=== PATIENT | female | born 1975 | race Asian ===

== ENCOUNTER → 2018-12-14 | Day surgery (SDC) | payer OTHER ==
--- NOTE | 2018-12-15 13:44 | PATH ---
Surgical Pathology Report Patient Name: GUSTAVO RUVALCABA [facility]. Rec. #: [id number] /Age/Gender: 1975 (Age: 43) / F Account: [id number] Location: RADIOLOGY Taken: 12/14/2018 Received: 12/14/2018 Reported: 12/15/2018 Physicians: Ethan Castro M.D. Specimen(s) Received RIGHT BREAST 1:00 Clinical History Breast nodule, 0.7 cm Final Diagnosis BREAST, RIGHT, 1:00, CORE BIOPSY: BENIGN BREAST PARENCHYMA WITH STROMAL FIBROSIS, PREDOMINANTLY CHRONIC AND FOCAL ACUTE INFLAMMATION ASSOCIATED WITH RARE DILATED DUCTS. Comment: Deeper levels have been examined. Suggest clinical and radiologic correlation. Electronically Signed Arabella Daugherty M.D. Gross Description Received in formalin, labeled "right breast 1:00 core biopsy" are 3 cores of shah to yellow soft tissue ranging from 0.5-1 cm in length and up to 0.1 cm diameter. The specimen is submitted in toto in one cassette. Time to formalin fixation: Less than one minute Formalin fixation time: approximately 7 hours KWS/12/14/2018 marshallki/12/14/2018
== END | disposition home or self-care (01) ==
LOC: JMAMMO-SUR 10:59
PROVIDERS: ATTEND Obstetrics & Gynecology
PROC: 0HBT3ZX Excision of Right Breast, Percutaneous Approach, Diagnostic (ICD-10-PCS; principal; 2018-12-14)
DX: N60.31 Fibrosclerosis of right breast (principal)
CPT/HCPCS: 19083; 87899; 88305-TC; A4648

== ENCOUNTER 2020-02-26 12:40 | Inpatient (IN) | payer OTHER ==
--- NOTE | 2020-02-26 13:07 | PDOC ---
History of Present Illness - General Stated Complaint: BLEEDING Time Seen by Provider: 02/26/20 12:50 - History of Present Illness Initial Comments: Dony Naqvi is a 44 y/o female with PMH significant for HTN, presenting today with bloody stool. Reports that the stool started at 10am this morning. She had 5 episodes of bloody stool. No bleeding from rectum at rest. She has never had this before. No hx of diverticulosis or hemorrhoids. Reports mild right mid abdominal pain that started at the same time without any pain radiation. No fever/chills. No back pain. No dysuria. Reports mild diarrhea. No constipation. No nausea/vomiting. No chest pain/shortness of breath. No headache/dizziness. No back pain. PMH: never had colonscopy Meds: bistolic 5 mg QD SurgHx: none. 3 kids from vaginal delivery Past History - Medical History Allergies/Adverse Reactions: Allergies Allergy/AdvReac Type Severity Reaction Status Date / Time No Known Allergies Allergy Verified 12/15/15 17:34 Home Medications: Ambulatory Orders Nebivolol [Bystolic -] 5 mg PO DAILY 02/26/20 COPD: No HTN: Yes - Immunization History Immunization Up to Date: Yes - Psycho-Social/Smoking History Smoking History: Never smoked Have you smoked in the past 12 months: No Information on smoking cessation initiated: No - Substance Abuse Hx (Audit-C & DAST Scrn) How often the patient has a drink containing alcohol: Never Score: In Men: 4 or > Positive; In Women: 3 or > Positive: 0 Screen Result (Pos requires Nsg. Audit-10AR): Negative In the last yr the pt used illegal drug/Rx for NonMed reason: No Score: Yes response is considered Positive: 0 Screen Result (Positive result requires Nsg. DAST-10): Negative Review of Systems - Review of Systems Comments:: GENERAL/CONSTITUTIONAL: No fever or chills. No weakness._ HEAD, EYES, EARS, NOSE AND THROAT: No change in vision. No change in hearing. No sore throat._ CARDIOVASCULAR: No chest pain or shortness of breath_ RESPIRATORY: Denies cough, hemoptysis_ GASTROINTESTINAL: Reports abdominal pain, diarrhea, and bloody stool. No nausea, vomiting, constipation._ GENITOURINARY: No dysuria, frequency, or change in urination._ MUSCULOSKELETAL: No joint or muscle swelling or pain. No neck or back pain._ SKIN: No rash_ NEUROLOGIC: No headache, vertigo, loss of consciousness, or change in strength/sensation._ ENDOCRINE: No increased thirst. No abnormal weight change_ HEMATOLOGIC/LYMPHATIC: No anemia, easy bleeding, or history of blood clots._ ALLERGIC/IMMUNOLOGIC: No hives or skin allergy. *Physical Exam - Vital Signs Last Vital Signs Temp Pulse Resp BP Pulse Ox 83 18 121/82 100 02/26/20 13:00 02/26/20 13:00 02/26/20 13:00 02/26/20 13:00 - Physical Exam GENERAL: Awake, alert, and oriented to person/place/time, in no acute distress_ HEAD: No signs of trauma, normocephalic, atraumatic _ EYES: PERRLA, EOMI, sclera anicteric, conjunctiva clear_ ENT: Hearing grossly normal, nares patent, oropharynx clear without exudates. No uvular deviation. Moist mucosa_ NECK: Normal ROM, supple, no lymphadenopathy, JVD, or masses_ LUNGS: No distress, speaks in full sentences, clear to auscultation bilaterally _ HEART: Regular rate and rhythm, normal S1 and S2, no murmurs appreciated, per ipheral pulses normal and equal bilaterally._ ABDOMEN: Soft, mild TTP right mid abdomen. No guarding, no rebound. No masses_ EXTREMITIES: Normal inspection, Normal range of motion, no edema. No clubbing or cyanosis_ NEUROLOGICAL: Cranial nerves II through XII grossly intact. Normal speech, normal gait, no focal sensorimotor deficits _ SKIN: Warm, Dry, normal turgor, no rashes or lesions noted_ RECTAL: Normal external exam. No active bleeding. No external hemorrhoids visualized. Minimal stool in the rectal vault. No internal hemorrhoids palpated. No masses appreciated. Normal rectal tone. ED Treatment Course - LABORATORY CBC & Chemistry Diagram: 02/26/20 18:19 02/26/20 13:24 - RADIOLOGY Radiology Studies Ordered: Category Date Time Status CHEST X-RAY PORTABLE* [RAD] Stat Radiology 02/26/20 13:04 Ordered Medical Decision Making - Medical Decision Making 44F hx of HTN presenting today with bloody stool x5 starting this morning. DDx includes diverticulosis vs hemorrhoids vs gastric ulcer bleed. -cbc, cmp -ekg, trop, cxr -ua, ucx -serum preg -CT abd pelv with IV contrast -stool occult blood 02/26/20 13:06 EKG shows 79 bpm, NSR, no axis deviation, NC 132, QTc 394, no ST elevation/depression. 02/26/20 14:01 CXR negative for acute intrathoracic pathology. 02/26/20 15:07 Labs reviewed. Laboratory Last Values WBC 10.8 K/mm3 (4.0-10.0) H 02/26/20 13:24 RBC 4.09 M/mm3 (3.60-5.2) 02/26/20 13:24 Hgb 11.6 GM/dL (10.7-15.3) 02/26/20 13:24 Hct 34.8 % (32.4-45.2) 02/26/20 13:24 MCV 85.2 fl (80-96) 02/26/20 13:24 MCH 28.5 pg (25.7-33.7) 02/26/20 13:24 MCHC 33.4 g/dl (32.0-36.0) 02/26/20 13:24 RDW 13.8 % (11.6-15.6) 02/26/20 13:24 Plt Count 302 K/MM3 (134-434) 02/26/20 13:24 MPV 8.2 fl (7.5-11.1) 02/26/20 13:24 Absolute Neuts (auto) 8.7 K/mm3 (1.5-8.0) H 02/26/20 13:24 Neutrophils % 80.3 % (42.8-82.8) 02/26/20 13:24 Lymphocytes % 13.2 % (8-40) 02/26/20 13:24 Monocytes % 5.7 % (3.8-10.2) 02/26/20 13:24 Eosinophils % 0.4 % (0-4.5) 02/26/20 13:24 Basophils % 0.4 % (0-2.0) 02/26/20 13:24 Nucleated RBC % 0 % (0-0) 02/26/20 13:24 PT with INR 12.10 SEC (9.7-13.0) 02/26/20 13:24 INR 1.03 (0.83-1.09) 02/26/20 13:24 PTT (Actin FS) 28.0 SECONDS (25.2-36.5) 02/26/20 13:24 Sodium 138 mmol/L (136-145) 02/26/20 13:24 Potassium 4.2 mmol/L (3.5-5.1) 02/26/20 13:24 Chloride 111 mmol/L (98-107) H 02/26/20 13:24 Carbon Dioxide 22 mmol/L (21-32) 02/26/20 13:24 Anion Gap 6 MMOL/L (8-16) L 02/26/20 13:24 BUN 10.5 mg/dL (7-18) 02/26/20 13:24 Creatinine 0.7 mg/dL (0.55-1.3) 02/26/20 13:24 Est GFR (CKD-EPI)AfAm 123.86 02/26/20 13:24 Est GFR (CKD-EPI)NonAf 106.87 02/26/20 13:24 Random Glucose 113 mg/dL (74-106) H 02/26/20 13:24 Calcium 9.3 mg/dL (8.5-10.1) 02/26/20 13:24 Total Bilirubin 0.6 mg/dL (0.2-1) 02/26/20 13:24 AST 22 U/L (15-37) 02/26/20 13:24 ALT 23 U/L (13-61) 02/26/20 13:24 Alkaline Phosphatase 47 U/L (45-117) 02/26/20 13:24 Creatine Kinase 85 U/L (26-192) 02/26/20 13:24 Troponin I 0.02 ng/ml (0.00-0.05) 02/26/20 13:24 Total Protein 6.3 g/dl (6.4-8.2) L 02/26/20 13:24 Albumin 3.2 g/dl (3.4-5.0) L 02/26/20 13:24 Lipase 119 U/L (73-393) 02/26/20 13:24 Serum , Qual Negative 02/26/20 13:24 Stool Occult Blood Positive (NEGATIVE) 02/26/20 13:[address] abd/pelv with IV contrast. 02/26/20 15:08 CXR negative for acute chest pathology. 02/26/20 17:36 CT abd shows Increased fluid is seen within the colon - ? current diarrheal illness. A retrocecal appendix is noted which demonstrates mild concentric wall thickening and mild periappendiceal soft tissue stranding suggestive of acute appendicitis. Sigmoid diverticulosis is noted without CT evidence of acute diverticulitis. Two contiguous 3 cm left adnexal cysts are seen. Correlation with 6 week follow-up sonography is suggested to document at least partial resolution. 02/26/20 17:46 D/w Dr. Hunter who will evaluate the patient. Admit, NPO, zosyn, fluids. 02/26/20 18:04 Will add on lactic acid to r/o ischemic colitis. 02/26/20 18:08 D/w admitting team who accepts the patient for admission. Discharge - Discharge Information Problems reviewed: Yes Clinical Impression/Diagnosis: Diverticulosis Appendicitis Qualifiers: Appendicitis type: acute appendicitis Acute appendicitis type: unspecified acute appendicitis type Qualified Code(s): K35.80 - Unspecified acute appendicitis Condition: Stable - Admission Yes - Follow up/Referral - Patient Discharge Instructions - Post Discharge Activity
[2020-02-26 14:23] LABS: BASO % 0.4 % (0-2.0); EOS % 0.4 % (0-4.5); HEMATOCRIT 34.8 % (32.4-45.2); HEMOGLOBIN 11.6 GM/dL (10.7-15.3); INR 1.03 (0.83-1.09); LYMPH % 13.2 % (8-40); MCH 28.5 pg (25.7-33.7); MCHC 33.4 g/dl (32.0-36.0); MEAN CELL VOLUME 85.2 fl (80-96); MEAN PLT VOLUME 8.2 fl (7.5-11.1); MONO % 5.7 % (3.8-10.2); NEUT % 80.3 % (42.8-82.8); PLATELET COUNT 302 K/MM3 (134-434); PROTHROMBIN TIME (PATIENT) 12.1 SEC (9.7-13.0); RBC 4.09 M/mm3 (3.60-5.2); RDW 13.8 % (11.6-15.6); WHITE BLOOD COUNT 10.8 K/mm3 (4.0-10.0)
[2020-02-26 14:43] LABS: ALBUMIN 3.2 g/dl (3.4-5.0); BILIRUBIN,TOTAL 0.6 mg/dL (0.2-1); BLOOD UREA NITROGEN 10.5 mg/dL (7-18); CALCIUM 9.3 mg/dL (8.5-10.1); CREATININE 0.7 mg/dL (0.55-1.3); POTASSIUM 4.2 mmol/L (3.5-5.1); TOT PROT 6.3 g/dl (6.4-8.2)
--- NOTE | 2020-02-26 16:25 | PDOC ---
Attending Attestation - Resident Resident Name: Phoenix Langston - ED Attending Attestation I have performed the following: I have examined & evaluated the patient, The case was reviewed & discussed with the resident, I agree w/resident's findings & plan, Exceptions are as noted - HPI HPI: 02/26/20 16:22 Agree with resident HPI - Physicial Exam PE: 02/26/20 16:23 Agree with resident exam - Medical Decision Making 02/26/20 16:23 44yo F hx HTN presents to the ED with multiple episodes BRBPR, filling toilet with some clots Vitals wnl Exam with RLQ ttp Not on anticoagulation DDx includes diverticulosis vs colitis vs internal hemorrhoids Pt HDS for now, but had another episode of BRBPR in the ED filling toilet Plan for labs, including coags/t&s, CTAP, monitoring Anticipate admission CTAP with acute appendicitis rpt abd exam with no RLQ ttp Surgery c/s for evaluation GI c/s as well given GIB Pt to be admitted to hospitalist for further mgmt Discharge - Discharge Information Problems reviewed: Yes Clinical Impression/Diagnosis: Diverticulosis Appendicitis Qualifiers: Appendicitis type: acute appendicitis Acute appendicitis type: unspecified acute appendicitis type Qualified Code(s): K35.80 - Unspecified acute appendicitis Condition: Improved Disposition: HOME - Follow up/Referral - Patient Discharge Instructions - Post Discharge Activity
[2020-02-26] MEDS ORDERED: PIPERACILLIN/TAZOB 3.375 GM 3.375 GM in DEXTROSE 5%-WATER - 50 ML IVPB ONE (17:48)
[2020-02-26] MEDS ORDERED: SODIUM CHLORIDE 0.9% 500 ML INFUS.BAG IV ONE (17:48)
[2020-02-26 18:28] LABS: URINE APPEARANCE CLEAR; URINE BILIRUBIN NEGATIVE (NEGATIVE); URINE COLOR YELLOW; URINE GLUCOSE (UA) NEGATIVE (NEGATIVE); URINE KETONE NEGATIVE (NEGATIVE); URINE LEUK ESTERASE NEGATIVE (NEGATIVE); URINE NITRITE NEGATIVE (NEGATIVE); URINE PROTEIN NEGATIVE (NEGATIVE); URINE UROBILINOGEN 0.2 mg/dL (0.2-1.0)
[2020-02-26] MEDS ORDERED: PIPERACILLIN/TAZOB 3.375 GM 3.375 GM/50 ML BAG IVPB ONE (18:31)
[2020-02-26 18:41] LABS: HEMATOCRIT 33.7 % (32.4-45.2); HEMOGLOBIN 11.2 GM/dL (10.7-15.3); MCH 28.8 pg (25.7-33.7); MCHC 33.3 g/dl (32.0-36.0); MEAN CELL VOLUME 86.5 fl (80-96); MEAN PLT VOLUME 9.1 fl (7.5-11.1); RBC 3.89 M/mm3 (3.60-5.2); RDW 13.8 % (11.6-15.6); WHITE BLOOD COUNT 12.6 K/mm3 (4.0-10.0)
--- NOTE | 2020-02-26 20:48 | PN ---
Teaching Attending Note Name of Resident: Evan Dick ATTENDING PHYSICIAN STATEMENT I saw and evaluated the patient. I reviewed the resident's note and discussed the case with the resident. I agree with the resident's findings and plan as documented. SUBJECTIVE: 44 years old F with PMH of HTn presented to hospital with multiple episodes if blood in stool started 10 am today. She described bright red blood in stool associated with some clots. She also c/o RLQ abd pain After coming to Ed she had another episode of BRBPR. OBJECTIVE: Last Vital Signs Temp Pulse Resp BP Pulse Ox 98.9 F 74 18 95/62 99 02/26/20 19:08 02/26/20 19:08 02/26/20 19:08 02/26/20 19:08 02/26/20 19:08 Laboratory Results - last 24 hr 02/26/20 02/26/20 02/26/20 13:20 13:24 13:24 WBC 10.8 H RBC 4.09 Hgb 11.6 Hct 34.8 MCV 85.2 MCH 28.5 MCHC 33.4 RDW 13.8 Plt Count 302 MPV 8.2 Absolute Neuts (auto) 8.7 H Neutrophils % 80.3 Lymphocytes % 13.2 Monocytes % 5.7 Eosinophils % 0.4 Basophils % 0.4 Nucleated RBC % 0 Manual Slide Review Platelet Comment PT with INR 12.10 INR 1.03 PTT (Actin FS) 28.0 Sodium Potassium Chloride Carbon Dioxide Anion Gap BUN Creatinine Est GFR (CKD-EPI)AfAm Est GFR (CKD-EPI)NonAf Random Glucose Lactic Acid Calcium Total Bilirubin AST ALT Alkaline Phosphatase Creatine Kinase Troponin I Total Protein Albumin Lipase Serum , Qual Urine Color Urine Appearance Urine pH Ur Specific [place] Urine Protein Urine Glucose (UA) Urine Ketones Urine Blood Urine Nitrite Urine Bilirubin Urine Urobilinogen Ur Leukocyte Esterase Stool Occult Blood Positive Blood Type Antibody Screen 02/26/20 02/26/20 02/26/20 13:24 13:24 13:51 WBC RBC Hgb Hct MCV MCH MCHC RDW Plt Count MPV Absolute Neuts (auto) Neutrophils % Lymphocytes % Monocytes % Eosinophils % Basophils % Nucleated RBC % Manual Slide Review Platelet Comment PT with INR INR PTT (Actin FS) Sodium 138 Potassium 4.2 Chloride 111 H Carbon Dioxide 22 Anion Gap 6 L BUN 10.5 Creatinine 0.7 Est GFR (CKD-EPI)AfAm 123.86 Est GFR (CKD-EPI)NonAf 106.87 Random Glucose 113 H Lactic Acid Calcium 9.3 Total Bilirubin 0.6 AST 22 ALT 23 Alkaline Phosphatase 47 Creatine Kinase 85 Troponin I 0.02 Total Protein 6.3 L Albumin 3.2 L Lipase 119 Serum , Qual Negative Urine Color Urine Appearance Urine pH Ur Specific [place] Urine Protein Urine Glucose (UA) Urine Ketones Urine Blood Urine Nitrite Urine Bilirubin Urine Urobilinogen Ur Leukocyte Esterase Stool Occult Blood Blood Type A NEGATIVE Antibody Screen Negative 02/26/20 02/26/20 02/26/20 16:36 18:19 18:19 WBC 12.6 H RBC 3.89 Hgb 11.2 Hct 33.7 MCV 86.5 MCH 28.8 MCHC 33.3 RDW 13.8 Plt Count No Result Required. MPV 9.1 D Absolute Neuts (auto) Neutrophils % Lymphocytes % Monocytes % Eosinophils % Basophils % Nucleated RBC % Manual Slide Review Plts.adq Platelet Comment Slt plt clumping PT with INR INR PTT (Actin FS) Sodium Potassium Chloride Carbon Dioxide Anion Gap BUN Creatinine Est GFR (CKD-EPI)AfAm Est GFR (CKD-EPI)NonAf Random Glucose Lactic Acid 2.9 H* Calcium Total Bilirubin AST ALT Alkaline Phosphatase Creatine Kinase Troponin I Total Protein Albumin Lipase Serum , Qual Urine Color Yellow Urine Appearance Clear Urine pH 5.0 Ur Specific [place] 1.023 Urine Protein Negative Urine Glucose (UA) Negative Urine Ketones Negative Urine Blood Negative Urine Nitrite Negative Urine Bilirubin Negative Urine Urobilinogen 0.2 Ur Leukocyte Esterase Negative Stool Occult Blood Blood Type Antibody Screen GENERAL: Awake, alert, and fully oriented, not in distress HEAD: Normal with no signs of trauma. EYES: Pupils equal, round and reactive to light, extraocular movements intact, sclera anicteric, conjunctiva clear. EARS, NOSE, THROAT: Oropharynx clear without exudates. Moist mucous membranes. NECK: No JVD, or masses. LUNGS: Breath sounds equal, clear to auscultation bilaterally. No wheezes, and no crackles. No accessory muscle use. HEART: RRR normal S1 and S2 without murmur, rub or gallop. ABDOMEN: Soft, not distended, tender on RLQ, no rigidity, guarding MUSCULOSKELETAL: Normal range of motion at all joints. No CVA tenderness. UPPER EXTREMITIES: 2+ pulses, warm, well-perfused. No peripheral edema. LOWER EXTREMITIES: 2+ pulses, warm, well-perfused. No calf tenderness. No peripheral edema. NEUROLOGICAL: Cranial nerves II-XII intact. Normal speech. PSYCHIATRIC: Cooperative. Good eye contact. Appropriate mood and affect. SKIN: Warm, dry, normal turgor, no rashes or lesions noted. CT AP ; CT abd shows Increased fluid is seen within the colon - ? current diarrheal illness. A retrocecal appendix is noted which demonstrates mild concentric wall thickening and mild periappendiceal soft tissue stranding suggestive of acute appendicitis. Sigmoid diverticulosis is noted without CT evidence of acute diverticulitis. Two contiguous 3 cm left adnexal cysts are seen. Correlation with 6 week follow-up sonography is suggested to document at least partial resolution. ASSESSMENT AND PLAN: BRBPR - Acute lower GI bleed. DDX - include colitis, diverticulitis, hemorrhoids Acute appendicitis Hx of HTN Admit to floor serial abd exam IV hydration NS 150 ml/hour CBC q 6 hours or now IV antibiotics - Zosyn trend lactic acid Surgery was consulted by ED NPO for now GI eval for colonoscopy PPI IV daily SCD for DVt ppx avoid NSAIDS, anticoaglulation Rectal exam POCt with RISS HTN on lower side - hold home bP meds follow covid test
[2020-02-26] MEDS ORDERED: ACETAMINOPHEN 325 MG TABLET (FP) PO PRN (21:17)
--- NOTE | 2020-02-26 21:23 | HP ---
CHIEF COMPLAINT: "bloody stool" PCP: Dr. Zechariah Dexter HISTORY OF PRESENT ILLNESS: 44 yo F with PMH of HTN presenting to the ED with complaint of "bloody stool." Pt reports having bright red blood per rectum (BRBPR) starting at 10 AM (5 episodes before arrival to [facility], 4 episodes while in [facility] ED). Pt describes it as bright red blood with some clots that fills the toilet, mostly without any stool. She has never had BRBPR in the past. These episodes were preceded by an episode of mild diarrhea this morning without blood. Pt reports associated dizziness and SOB after episodes at home, but symptoms resolved with fluid resuscitation in ED. Pt denies pain associated with the BRBPR. Also denies recent constipation, fevers, chills, dysuria, nausea, vomiting, vaginal bleeding, or chest pain. She has never had a colonoscopy before. Aside from her main complaint, pt is also experiencing mild 2-3/10 non-radiating dull RLQ abdominal pain starting "few days ago." She reports no associated symptoms with the abdominal pain; no aggravating or alleviating factors. ER course was notable for: (1) CT abdomen showing increased fluid within colon; retrocelcal appendix with mild concentric wall-thickening and mild cullen-appendiceal soft tissue stranding; sigmoid diverticulosis without diverticulitis (2) IVF hydration with 1 L NS bolus; IV Zosyn 3.375 grams (3) Stool Occult Blood + Recent Travel: [place] - 4 month ago [employer] HISTORY: - Nuclear Physician: LMP on 02/02; regular cycles lasting 3 days on average; requiring a maximum of 2 pads per day; reports no irregular bleeding or other Nuclear Physician concerns - OB: 3 kids (ages 11, 16, 21); all without complications PAST MEDICAL HISTORY: HTN - on bystolic 5 mg daily PAST SURGICAL HISTORY: none FAMILY HISTORY: HTN and DM hx on maternal and paternal side of family; father with cardiac bypass surgery Social History: Works as pathology lab technician; lives at home with and three kids. Denies any toxic habits. Pt is vegetarian. Smoking: never Alcohol: never Drugs: never Allergies No Known Allergies Allergy (Verified 12/15/15 17:34) HOME MEDICATIONS: Home Medications Medication Instructions Recorded Nebivolol [Bystolic -] 5 mg PO DAILY 02/26/20 REVIEW OF SYSTEMS As per HPI. PHYSICAL EXAMINATION Vital Signs - 24 hr 02/26/20 02/26/20 02/26/20 13:00 13:42 17:42 Temperature 98.3 F Pulse Rate 83 Pulse Rate [ 74 Left Apical] Respiratory 18 20 Rate Blood Pressure 121/82 Blood Pressure 104/60 [Right Arm] O2 Sat by Pulse 100 100 100 Oximetry (%) 02/26/20 19:08 Temperature 98.9 F Pulse Rate Pulse Rate [ 74 Left Apical] Respiratory 18 Rate Blood Pressure Blood Pressure 95/62 [Right Arm] O2 Sat by Pulse 99 Oximetry (%) GENERAL: Awake, alert, and fully oriented, in no acute distress. Resting comfortably. HEAD: NCAT. EYES: PERRLA, extraocular movements intact, sclera white, conjunctiva clear. EARS, NOSE, THROAT: Oropharynx clear without exudates. Moist mucous membranes. NECK: Trachea midline, neck supple. LUNGS: Breath sounds equal, clear to auscultation bilaterally. No wheezes, and no crackles. No accessory muscle use. HEART: Regular rate and rhythm, normal S1 and S2 without murmur, rub or gallop. ABDOMEN: Soft, non distended, + BS in all 4 quadrants; Mild tenderness to palpation or RLQ, no guarding, no rebound, no masses, no rigidity. Rovsing neg; McBurney's point neg RECTAL: MARCO performed; Normal external exam, without external hemorrhoids. No stool or blood appreciated in rectal vault. No active bleeding. Minimal stool in the rectal vault. No internal hemorrhoids or masses appreciated. Normal rectal tone. MUSCULOSKELETAL: Moving all extremities equally and spontaneously UPPER EXTREMITIES: 2+ pulses, warm, well-perfused. No peripheral edema. LOWER EXTREMITIES: 2+ pulses, warm, well-perfused. No peripheral edema. NEUROLOGICAL: Cranial nerves II-XII grossly intact. Normal speech. PSYCHIATRIC: Cooperative. Good eye contact. SKIN: Warm, no rashes or lesions noted. Laboratory Results - last 24 hr 02/26/20 02/26/20 02/26/20 13:20 13:24 13:24 WBC 10.8 H RBC 4.09 Hgb 11.6 Hct 34.8 MCV 85.2 MCH 28.5 MCHC 33.4 RDW 13.8 Plt Count 302 MPV 8.2 Absolute Neuts (auto) 8.7 H Neutrophils % 80.3 Lymphocytes % 13.2 Monocytes % 5.7 Eosinophils % 0.4 Basophils % 0.4 Nucleated RBC % 0 Manual Slide Review Platelet Comment PT with INR 12.10 INR 1.03 PTT (Actin FS) 28.0 Sodium Potassium Chloride Carbon Dioxide Anion Gap BUN Creatinine Est GFR (CKD-EPI)AfAm Est GFR (CKD-EPI)NonAf Random Glucose Lactic Acid Calcium Total Bilirubin AST ALT Alkaline Phosphatase Creatine Kinase Troponin I Total Protein Albumin Lipase Serum , Qual Urine Color Urine Appearance Urine pH Ur Specific Newman Urine Protein Urine Glucose (UA) Urine Ketones Urine Blood Urine Nitrite Urine Bilirubin Urine Urobilinogen Ur Leukocyte Esterase Stool Occult Blood Positive Blood Type Antibody Screen 02/26/20 02/26/20 02/26/20 13:24 13:24 13:51 WBC RBC Hgb Hct MCV MCH MCHC RDW Plt Count MPV Absolute Neuts (auto) Neutrophils % Lymphocytes % Monocytes % Eosinophils % Basophils % Nucleated RBC % Manual Slide Review Platelet Comment PT with INR INR PTT (Actin FS) Sodium 138 Potassium 4.2 Chloride 111 H Carbon Dioxide 22 Anion Gap 6 L BUN 10.5 Creatinine 0.7 Est GFR (CKD-EPI)AfAm 123.86 Est GFR (CKD-EPI)NonAf 106.87 Random Glucose 113 H Lactic Acid Calcium 9.3 Total Bilirubin 0.6 AST 22 ALT 23 Alkaline Phosphatase 47 Creatine Kinase 85 Troponin I 0.02 Total Protein 6.3 L Albumin 3.2 L Lipase 119 Serum , Qual Negative Urine Color Urine Appearance Urine pH Ur Specific Newman Urine Protein Urine Glucose (UA) Urine Ketones Urine Blood Urine Nitrite Urine Bilirubin Urine Urobilinogen Ur Leukocyte Esterase Stool Occult Blood Blood Type A NEGATIVE Antibody Screen Negative 02/26/20 02/26/20 02/26/20 16:36 18:19 18:19 WBC 12.6 H RBC 3.89 Hgb 11.2 Hct 33.7 MCV 86.5 MCH 28.8 MCHC 33.3 RDW 13.8 Plt Count No Result Required. MPV 9.1 D Absolute Neuts (auto) Neutrophils % Lymphocytes % Monocytes % Eosinophils % Basophils % Nucleated RBC % Manual Slide Review Plts.adq Platelet Comment Slt plt clumping PT with INR INR PTT (Actin FS) Sodium Potassium Chloride Carbon Dioxide Anion Gap BUN Creatinine Est GFR (CKD-EPI)AfAm Est GFR (CKD-EPI)NonAf Random Glucose Lactic Acid 2.9 H* Calcium Total Bilirubin AST ALT Alkaline Phosphatase Creatine Kinase Troponin I Total Protein Albumin Lipase Serum , Qual Urine Color Yellow Urine Appearance Clear Urine pH 5.0 Ur Specific Newman 1.023 Urine Protein Negative Urine Glucose (UA) Negative Urine Ketones Negative Urine Blood Negative Urine Nitrite Negative Urine Bilirubin Negative Urine Urobilinogen 0.2 Ur Leukocyte Esterase Negative Stool Occult Blood Blood Type Antibody Screen ASSESSMENT/PLAN: Pt is a 44 yo F with PMH of HTN being admitted due to acute lower GI bleed and incidental radiologic finding of uncomplicated appendicitis. #Acute Lower GI Bleed Diverticular Bleed vs Colitis vs Internal Hemorrhoids - GI consulted; appreciate recs - IV protonix 40 - IVF hydration - D5 NS @ 125 cc/hr - please contact medicine team if pt continues to have episodes of bleeding - Trend lactate (lactic acid in ED - 2.9) - Monitor CBC for H/H; q6h for now (last Hb 11.2) - Monitor for changes in abdominal exam - Consider CT angio if pt continues to have lower GI bleed - Stool Culture; O&P as pt had diarrhea prior to episodes of BRBPR #Acute Uncomplicated Appendicitis CT Abd finding showing acute appendicitis; mild RLQ abdominal pain; no other symptoms - Surgery consulted by ED; regarding operative vs nonoperative managament - IV zosyn 3.375 q6h; consider flagyl for bacteroides coverage - Monitor WBC (mild leukocytosis; uptrending to 12.6) - Monitor for changes in abdominal exam - PO tylenol PRN for fever #Hx of HTN - hold home Bystolic for now, as pt as acute lower GI bleed and BP is on lower side #DVT PPx - SCDs #FEN - F - D5 NS @ 125 cc/hr - E - monitor daily; replete prn - N - NPO Dispo: admit to med-surg Visit type - Emergency Visit Emergency Visit: Yes ED Registration Date: 02/26/20 Care time: The patient presented to the Emergency Department on the above date and was hospitalized for further evaluation of their emergent condition. - New Patient This patient is new to me today: Yes Date on this admission: 02/27/20 - Critical Care Critical Care patient: No ATTENDING PHYSICIAN STATEMENT I saw and evaluated the patient. I reviewed the resident's note and discussed the case with the resident. I agree with the resident's findings and plan as documented. SUBJECTIVE: OBJECTIVE: ASSESSMENT AND PLAN:
[2020-02-26] MEDS: DEXTROSE 5%-NORMAL SALINE 1,000 ML IV SCH (21:32)
[2020-02-26] MEDS ORDERED: PANTOPRAZOLE 40 MG TABLET PO ONE ×2 (21:37→21:45)
[2020-02-27] MEDS ORDERED: DEXTROSE 5%-WATER - 50 ML IVPB ONE ×4 (04:50→20:57)
[2020-02-27] MEDS ORDERED: PIPERACILLIN/TAZOBACTAM 3.375 GM VIAL IVPB ONE ×4 (04:50→20:57)
[2020-02-27] MEDS: PIPERACILLIN/TAZOB 3.375 GM 3.375 GM in DEXTROSE 5%-WATER - 50 ML IVPB SCH ×4 (05:12→21:06)
[2020-02-27] MEDS: DEXTROSE 5%-NORMAL SALINE 1,000 ML IV SCH (05:13)
[2020-02-27 07:29] LABS: BASO % 0.5 % (0-2.0); HEMATOCRIT 26.6 % (32.4-45.2); HEMOGLOBIN 8.9 GM/dL (10.7-15.3); LYMPH % 31.1 % (8-40); MCH 28.8 pg (25.7-33.7); MCHC 33.5 g/dl (32.0-36.0); MEAN CELL VOLUME 85.9 fl (80-96); MEAN PLT VOLUME 8.1 fl (7.5-11.1); MONO % 6.5 % (3.8-10.2); NEUT % 58.9 % (42.8-82.8); PLATELET COUNT 224 K/MM3 (134-434); RBC 3.09 M/mm3 (3.60-5.2); RDW 13.5 % (11.6-15.6); WHITE BLOOD COUNT 6.4 K/mm3 (4.0-10.0)
[2020-02-27 07:36] LABS: ALBUMIN 2.5 g/dl (3.4-5.0); BILIRUBIN,TOTAL 0.8 mg/dL (0.2-1); BLOOD UREA NITROGEN 5.6 mg/dL (7-18); CALCIUM 7.6 mg/dL (8.5-10.1); CREATININE 0.6 mg/dL (0.55-1.3); POTASSIUM 3.8 mmol/L (3.5-5.1); TOT PROT 4.8 g/dl (6.4-8.2)
--- NOTE | 2020-02-27 08:35 | PN ---
Progress Note, Physician History of Present Illness: Pt is a 44 yo F with PMH of HTN being admitted due to acute lower GI bleed and incidental radiologic finding of uncomplicated appendicitis.. No further bleeding overnight - Current Medication List Current Medications: Active Medications Acetaminophen (Tylenol -) 650 mg PO Q4H PRN PRN Reason: MODERATE PAIN Dextrose/Sodium Chloride (D5-Ns -) 1,000 mls @ 125 mls/hr IV ASDIR DENTON Last Admin: 02/27/20 05:13 Dose: 125 mls/hr Documented by: Piperacillin Sod/Tazobactam (Sod 3.375 gm/ Dextrose) 50 mls @ 100 mls/hr IVPB Q6H-IV DENTON; Protocol Piperacillin Sod/Tazobactam (Sod 3.375 gm/ Dextrose) 50 mls @ 100 mls/hr IVPB Q6H-IV DENTON; Protocol Stop: 02/27/20 21:29 Last Admin: 02/27/20 05:12 Dose: 100 mls/hr Documented by: Pantoprazole Sodium (Protonix Iv) 40 mg IVPUSH DAILY DENTON - Objective Vital Signs: Vital Signs Temperature 98 F 02/27/20 05:22 Pulse Rate 62 02/27/20 05:22 Respiratory Rate 18 02/27/20 05:22 Blood Pressure 105/55 L 02/27/20 05:22 O2 Sat by Pulse Oximetry (%) 99 02/27/20 05:22 Constitutional: Yes: Well Nourished, No Distress, Calm Eyes: Yes: WNL, Conjunctiva Clear HENT: Yes: WNL, Atraumatic, Normocephalic Neck: Yes: WNL, Supple, Trachea Midline Cardiovascular: Yes: WNL, Regular Rate and Rhythm Respiratory: Yes: WNL, Regular, CTA Bilaterally Gastrointestinal: Yes: Normal Bowel Sounds, Soft, Abdomen, Obese ...Rectal Exam: Yes: Deferred Genitourinary: Yes: WNL Breast(s): Yes: WNL Musculoskeletal: Yes: WNL Extremities: Yes: WNL Edema: No Peripheral Pulses WNL: Yes Peripheral Pulses: Left Radial: 2+, Right Radial: 2+, Left Doralis Pedis: 2+, Right Dorsalis Pedis: 2+, Left Femoral: 2+, Right Femoral: 2+ Integumentary: Yes: WNL Neurological: Yes: WNL, Alert, Oriented ...Motor Strength: WNL Psychiatric: Yes: WNL Labs: CBC, BMP 02/27/20 06:16 02/27/20 06:16 INR, PTT INR 1.03 (0.83-1.09) 02/26/20 13:24 - ....Imaging Cat Scan: Other (CT abdomen showing increased fluid within colon; retrocelcal appendix with mild concentric wall-thickening and mild cullen-appendiceal soft tissue stranding; sigmoid diverticulosis without diverticulitis) Problem List - Problems (1) GI bleed Assessment/Plan: Diverticular Bleed vs Colitis vs Internal Hemorrhoids no further epsidoes overnight GI following appreciate recs c/w IV protonix c/w IVF hydration - D5 NS @ 125 cc/hr lactate now .7 (lactic acid in ED - 2.9) c/w Monitor CBC Stool Culture; O&P pending plan for colonoscopy +/- EGD with Dr Dilip Lopez diet today. NPO after midnight Code(s): K92.2 - GASTROINTESTINAL HEMORRHAGE, UNSPECIFIED Qualifiers: GI bleed type/associated pathology: unspecified gastrointestinal hemorrhage type Qualified Code(s): K92.2 - Gastrointestinal hemorrhage, unspecified (2) Prophylactic measure Code(s): Z29.9 - ENCOUNTER FOR PROPHYLACTIC MEASURES, UNSPECIFIED (3) Suspected COVID-19 virus infection Assessment/Plan: COVID Suspicion low On RA strict airborne/droplet precautions until resulted Code(s): Z20.828 - CONTACT W AND EXPOSURE TO OTH VIRAL COMMUNICABLE DISEASES (4) Diverticulosis Assessment/Plan: Given CT findings, diverticular hemorrhage likely plan for EGD tomorrow c/w zosyn until after procedure Code(s): K57.90 - DVRTCLOS OF INTEST, PART UNSP, W/O PERF OR ABSCESS W/O BLEED (5) Appendicitis Assessment/Plan: seen by Dr Hunter doesn't appear to have acute appendicitis No need for acute surgical intervention at this time. GI w/u in prgress Code(s): K37 - UNSPECIFIED APPENDICITIS Qualifiers: Appendicitis type: acute appendicitis Acute appendicitis type: unspecified acute appendicitis type Qualified Code(s): K35.80 - Unspecified acute appendicitis Visit type - Emergency Visit Emergency Visit: Yes ED Registration Date: 07/27/20 Care time: The patient presented to the Emergency Department on the above date and was hospitalized for further evaluation of their emergent condition. - New Patient This patient is new to me today: Yes Date on this admission: 02/27/20 - Critical Care Critical Care patient: No - Discharge Referral Referred to [facility] Med P.C.: No
--- NOTE | 2020-02-27 09:20 | EKG ---
Test Reason : Blood Pressure : / mmHG Vent. Rate : 079 BPM Atrial Rate : 079 BPM P-R Int : 132 ms QRS Dur : 080 ms QT Int : 344 ms P-R-T Axes : 020 015 019 degrees QTc Int : 394 ms NORMAL SINUS RHYTHM NORMAL ECG NO PREVIOUS ECGS AVAILABLE Confirmed by MD MARCO, VELASQUEZ ([id number]) on 02/27/2020 9:20:17 AM Referred By: Confirmed By:VELASQUEZ LARA MD
[2020-02-27] MEDS: PANTOPRAZOLE SODIUM 40 MG VIAL IVPUSH SCH (09:21)
--- NOTE | 2020-02-27 11:06 | CONSULT ---
<Jacob Landeros - Last Filed: 02/27/20 10:10> - Consultation REQUESTING PROVIDER: CONSULT REQUEST: We have been asked to surgically evaluate this patient for appendicitis PCP:LOCO Balderas HISTORY OF PRESENT ILLNESS: Surgery was consulted for possible appendicitis on CT scan. 44yo F presented to the ED with complaint of BRBPR x 2 days. Pt denies any abd pain, fever, chills, n/v. Pt denies previous history of GI bleed, abd pain, abd surgery. Pt never had a colonoscopy. PMHx: HTN PSHx: Denies Home Medications Medication Instructions Recorded Nebivolol [Bystolic -] 5 mg PO DAILY 02/26/20 Allergies Allergy/AdvReac Type Severity Reaction Status Date / Time No Known Allergies Allergy Verified 12/15/15 17:34 REVIEW OF SYSTEMS: CONSTITUTIONAL: Absent: fever, chills, diaphoresis, generalized weakness, malaise, loss of appetite, weight change CARDIOVASCULAR: Absent: chest pain, syncope, palpitations, irregular heart rate, lightheadedness, peripheral edema RESPIRATORY: Absent: cough, shortness of breath, dyspnea with exertion, wheezing, stridor, hemoptysis GASTROINTESTINAL: Absent: abdominal pain, abdominal distension, nausea, vomiting, diarrhea, constipation GENITOURINARY: Absent: dysuria, frequency, urgency, hesitancy, hematuria, flank pain, genital pain MUSCULOSKELETAL: Absent: myalgia, arthralgia, joint swelling, back pain, neck pain SKIN: Absent: rash, itching, pallor HEMATOLOGIC/IMMUNOLOGIC: Absent: easy bleeding, easy bruising, lymphadenopathy PHYSICAL EXAM: GENERAL: Awake, alert, and fully oriented, in no acute distress. HEAD: Normal with no signs of trauma. EYES: PERRL, sclera anicteric, conjunctiva clear. NECK: Normal ROM, supple without lymphadenopathy, JVD, or masses. LUNGS: Breathing comfortably No accessory muscle use. HEART: Regular rate and rhythm. ABDOMEN: Soft, nontender, not distended, no guarding, no rebound, no masses. No organomegaly. MUSCULOSKELETAL: Normal ROM at all joints. No bony deformities or tenderness. No CVA tenderness. UPPER EXTREMITIES: warm, well-perfused. No cyanosis. No peripheral edema. LOWER EXTREMITIES: warm, well-perfused. No calf tenderness. No peripheral edema. NEUROLOGICAL: Normal speech, gait not observed. PSYCH: Cooperative. Good eye contact. Appropriate mood and affect. SKIN: Warm, dry, normal turgor, no rashes or lesions noted. Vital Signs Temperature 98.1 F 02/27/20 09:28 Pulse Rate 63 02/27/20 09:28 Respiratory Rate 18 02/27/20 09:28 Blood Pressure 101/55 L 02/27/20 09:28 O2 Sat by Pulse Oximetry (%) 97 02/27/20 09:28 Lab Results WBC 6.4 K/mm3 (4.0-10.0) 02/27/20 06:16 RBC 3.09 M/mm3 (3.60-5.2) L 02/27/20 06:16 Hgb 8.9 GM/dL (10.7-15.3) L 02/27/20 06:16 Hct 26.6 % (32.4-45.2) L D 02/27/20 06:16 MCV 85.9 fl (80-96) 02/27/20 06:16 MCHC 33.5 g/dl (32.0-36.0) 02/27/20 06:16 RDW 13.5 % (11.6-15.6) 02/27/20 06:16 Plt Count 224 K/MM3 (134-434) D 02/27/20 06:16 INR 1.03 (0.83-1.09) 02/26/20 13:24 Sodium 142 mmol/L (136-145) 02/27/20 06:16 Potassium 3.8 mmol/L (3.5-5.1) 02/27/20 06:16 Chloride 114 mmol/L (98-107) H 02/27/20 06:16 Carbon Dioxide 20 mmol/L (21-32) L 02/27/20 06:16 Anion Gap 8 MMOL/L (8-16) 02/27/20 06:16 BUN 5.6 mg/dL (7-18) L 02/27/20 06:16 Creatinine 0.6 mg/dL (0.55-1.3) 02/27/20 06:16 Random Glucose 116 mg/dL (74-106) H 02/27/20 06:16 Calcium 7.6 mg/dL (8.5-10.1) L 02/27/20 06:16 Blood Type A NEGATIVE 02/26/20 13:51 Antibody Screen Negative 02/26/20 13:51 CT abdomen showing increased fluid within colon; retrocecal appendix with mild concentric wall-thickening and mild cullen-appendiceal soft tissue stranding; sigmoid diverticulosis without diverticulitis Problem List - Problems (1) Appendicitis Assessment/Plan: -Pt doesn't appear to have acute appendicitis, issue appears more to be GI bleed. No need for acute surgical intervention at this time. -Recommend GI work up for GI bleed -continue NPO, IVF -serial hgb -please reconsult surgery if any acute changes Pt seen and discussed with Dr. Hunter who agrees with plan Code(s): K37 - UNSPECIFIED APPENDICITIS Qualifiers: Appendicitis type: acute appendicitis Acute appendicitis type: unspecified acute appendicitis type Qualified Code(s): K35.80 - Unspecified acute appendicitis <Marc Hunter - Last Filed: 02/27/20 11:32> - Consultation REQUESTING PROVIDER: CONSULT REQUEST: We have been asked to surgically evaluate this patient for (specify). PCP:LOCO Balderas HISTORY OF PRESENT ILLNESS: PMHx: PSHx: Home Medications Medication Instructions Recorded Nebivolol [Bystolic -] 5 mg PO DAILY 02/26/20 Allergies Allergy/AdvReac Type Severity Reaction Status Date / Time No Known Allergies Allergy Verified 12/15/15 17:34 REVIEW OF SYSTEMS: CONSTITUTIONAL: Absent: fever, chills, diaphoresis, generalized weakness, malaise, loss of appetite, weight change CARDIOVASCULAR: Absent: chest pain, syncope, palpitations, irregular heart rate, lightheadedness, peripheral edema RESPIRATORY: Absent: cough, shortness of breath, dyspnea with exertion, wheezing, stridor, hemoptysis GASTROINTESTINAL: Absent: abdominal pain, abdominal distension, nausea, vomiting, diarrhea, constipation, melena, hematochezia GENITOURINARY: Absent: dysuria, frequency, urgency, hesitancy, hematuria, flank pain, genital pain MUSCULOSKELETAL: Absent: myalgia, arthralgia, joint swelling, back pain, neck pain SKIN: Absent: rash, itching, pallor HEMATOLOGIC/IMMUNOLOGIC: Absent: easy bleeding, easy bruising, lymphadenopathy NEUROLOGIC: Absent: headache, focal weakness, paresthesias, dizziness, unsteady gait, seizure, mental status changes, bladder or bowel incontinence PSYCHIATRIC: Absent: anxiety, depression, suicidal or homicidal ideation, hallucinations. PHYSICAL EXAM: GENERAL: Awake, alert, and fully oriented, in no acute distress. HEAD: Normal with no signs of trauma. EYES: PERRL, sclera anicteric, conjunctiva clear. NECK: Normal ROM, supple without lymphadenopathy, JVD, or masses. LUNGS: Clear to auscultation bilat anteriorly. No wheezes, and no crackles. No accessory muscle use. HEART: Regular rate and rhythm. No murmurs ABDOMEN: Soft, nontender, not distended, normoactive bowel sounds, no guarding, no rebound, no masses. No organomegaly. MUSCULOSKELETAL: Normal ROM at all joints. No bony deformities or tenderness. No CVA tenderness. UPPER EXTREMITIES: 2+ pulses, warm, well-perfused. No cyanosis. Cap refill <2 seconds. No peripheral edema. LOWER EXTREMITIES: 2+ pulses, warm, well-perfused. No calf tenderness. No peripheral edema. NEUROLOGICAL: Normal speech, gait not observed. PSYCH: Cooperative. Good eye contact. Appropriate mood and affect. SKIN: Warm, dry, normal turgor, no rashes or lesions noted. Vital Signs Temperature 98.1 F 02/27/20 09:28 Pulse Rate 63 02/27/20 09:28 Respiratory Rate 18 02/27/20 09:28 Blood Pressure 101/55 L 02/27/20 09:28 O2 Sat by Pulse Oximetry (%) 97 02/27/20 09:28 Lab Results WBC 6.4 K/mm3 (4.0-10.0) 02/27/20 06:16 RBC 3.09 M/mm3 (3.60-5.2) L 02/27/20 06:16 Hgb 8.9 GM/dL (10.7-15.3) L 02/27/20 06:16 Hct 26.6 % (32.4-45.2) L D 02/27/20 06:16 MCV 85.9 fl (80-96) 02/27/20 06:16 MCHC 33.5 g/dl (32.0-36.0) 02/27/20 06:16 RDW 13.5 % (11.6-15.6) 02/27/20 06:16 Plt Count 224 K/MM3 (134-434) D 02/27/20 06:16 INR 1.03 (0.83-1.09) 02/26/20 13:24 Sodium 142 mmol/L (136-145) 02/27/20 06:16 Potassium 3.8 mmol/L (3.5-5.1) 02/27/20 06:16 Chloride 114 mmol/L (98-107) H 02/27/20 06:16 Carbon Dioxide 20 mmol/L (21-32) L 02/27/20 06:16 Anion Gap 8 MMOL/L (8-16) 02/27/20 06:16 BUN 5.6 mg/dL (7-18) L 02/27/20 06:16 Creatinine 0.6 mg/dL (0.55-1.3) 02/27/20 06:16 Random Glucose 116 mg/dL (74-106) H 02/27/20 06:16 Calcium 7.6 mg/dL (8.5-10.1) L 02/27/20 06:16 Blood Type A NEGATIVE 02/26/20 13:51 Antibody Screen Negative 02/26/20 13:51
--- NOTE | 2020-02-27 13:03 | CON.GI ---
Consult Consult Specialty:: GI Referred by:: Hospitalist Service Reason for Consultation:: Rectal bleeding - History of Present Illness Chief Complaint: Rectal bleeding History of Present Illness: 44F admitted through [facility] ER for evaluation of rectal bleeding. 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 She called her PMD Dr. Dexter who advised she go to the [facility] ER. Her drove her. Hemodynamically stable in ED. Had total of 9 bloodly BM's, the last being last night. No associated abdominal pain. Had a contrast CT scan that questioned apendicitis given thickened appendix on CT scan. Seen by surgery and felt this was not appendicitis. No prior history of GI bleed, no family history of colorectal cancer or other GI malignancy. She has never had a n EGD/Colonoscopy. She denies recent NSAID use. CT scan did reveal sigmoid diverticulosis. No bleeding today. States feeling well. Hgb on admission was 11.6, 8/9 this AM. No history of anemia. - History Source History Provided By: Patient Limitations to Obtaining History: No Limitations - Past Medical History Cardio/Vascular: Yes: HTN - Past Surgical History Additional Surgical History: None - Alcohol/Substance Use Hx Alcohol Use: No History of Substance Use: reports: None - Smoking History Smoking history: Never smoked Have you smoked in the past 12 months: No - Social History Usual Living Arrangement: With Spouse ADL: Independent Occupation: Fruit Worker Place of : Other ([employer]) Came to [place] (year[place] 2001 History of Recent Travel: Yes ([place], 4 months prior. Uneventful trip) Home Medications - Allergies Allergies/Adverse Reactions: Allergies Allergy/AdvReac Type Severity Reaction Status Date / Time No Known Allergies Allergy Verified 12/15/15 17:34 - Home Medications Home Medications: Ambulatory Orders Nebivolol [Bystolic -] 5 mg PO DAILY 02/26/20 Family Medical History Other Family History: Mother: healthy. Father: healthy. 1 sister / 1 brother: healthy. 2 daughters, 1 son: healthy. No family history of colorectal cancer or other GI malignancy. Review of Systems - Review of Systems Constitutional: denies: Chills Cardiovascular: denies: Chest Pain Respiratory: denies: Cough Gastrointestinal: reports: Rectal Bleeding. denies: Abdominal Pain, Dysphagia, Melena, Nausea, Vomiting, Vomiting Blood Physical Exam-GI Vital Signs: Vital Signs Temperature 98.1 F 02/27/20 09:28 Pulse Rate 63 02/27/20 09:28 Respiratory Rate 18 02/27/20 09:28 Blood Pressure 101/55 L 02/27/20 09:28 O2 Sat by Pulse Oximetry (%) 97 02/27/20 09:28 Constitutional: Yes: Calm Eyes: No: Sclera Icterus Cardiovascular: Yes: Regular Rate and Rhythm. No: Murmur Respiratory: Yes: CTA Bilaterally Gastrointestinal Inspection: Yes: Scars. No: Distention ...Auscultate: Yes: Normoactive Bowel Sounds ...Palpate: Yes: Soft. No: Hepatomegaly, Splenomegaly, Tenderness ...Percussion: No: Tympanitic Edema: No (No LE edema) Neurological: Yes: Alert Labs: CBC, BMP 02/27/20 06:16 02/27/20 06:16 INR, PTT INR 1.03 (0.83-1.09) 02/26/20 13:24 Hepatic Panel Total Bilirubin 0.8 mg/dL (0.2-1) 02/27/20 06:16 AST 10 U/L (15-37) L 02/27/20 06:16 ALT 17 U/L (13-61) 02/27/20 06:16 Alkaline Phosphatase 35 U/L (45-117) L 02/27/20 06:16 Albumin 2.5 g/dl (3.4-5.0) L 02/27/20 06:16 Problem List - Problems (1) GI bleed Assessment/Plan: Painless hematochezia. Given CT findings, diverticular hemorrhage would need to be higher in differential Discussed plan for colonoscopy +/- EGD with Ms. Naqvi to evaluate further and exclude alternate source. Discussed potential risks of the procedure like but not limited to bleeding, perforation requiring surgery to repair, infection, sedation medication effects all of which could be potentially life threatening. She has agreed for the procedures. For now: Switched to monitored setting while she is bowel prepping. If significant bleeding / change in hemodynamics, notify GI, move to ICU setting Ordered repeat CBC for now. Keep Hgb >7 Clear diet today. NPO after midnight Colonoscopy +/- EGD tomorrow Code(s): K92.2 - GASTROINTESTINAL HEMORRHAGE, UNSPECIFIED Qualifiers: GI bleed type/associated pathology: unspecified gastrointestinal hemorrhage type Qualified Code(s): K92.2 - Gastrointestinal hemorrhage, unspecified
[2020-02-27 13:51] LABS: HEMOGLOBIN 8.9 GM/dL (10.7-15.3); MCH 28.7 pg (25.7-33.7); MCHC 33.1 g/dl (32.0-36.0); MEAN CELL VOLUME 86.9 fl (80-96); PLATELET COUNT 215 K/MM3 (134-434); RDW 13.6 % (11.6-15.6); WHITE BLOOD COUNT 5.2 K/mm3 (4.0-10.0)
[2020-02-27] MEDS ORDERED: PEG 3350/NA SULF BICARB CL/KCL 4000 ML SOLN.RECON PO ONE (17:00)
[2020-02-27] MEDS ORDERED: BISACODYL 5 MG TABLET.DR (FP) PO ONE (17:00)
[2020-02-28] MEDS: DEXTROSE 5%-NORMAL SALINE 1,000 ML IV SCH (00:03)
[2020-02-28] MEDS ORDERED: ONDANSETRON 4 MG/2 ML VIAL IVPUSH ONE (04:45)
[2020-02-28 07:02] LABS: BASO % 0.6 % (0-2.0); EOS % 2.9 % (0-4.5); HEMATOCRIT 26.8 % (32.4-45.2); HEMOGLOBIN 8.9 GM/dL (10.7-15.3); LYMPH % 24.8 % (8-40); MCH 28.7 pg (25.7-33.7); MCHC 33.4 g/dl (32.0-36.0); MEAN CELL VOLUME 85.8 fl (80-96); MEAN PLT VOLUME 8.1 fl (7.5-11.1); MONO % 6.3 % (3.8-10.2); NEUT % 65.4 % (42.8-82.8); PLATELET COUNT 244 K/MM3 (134-434); RBC 3.12 M/mm3 (3.60-5.2); RDW 13.5 % (11.6-15.6); WHITE BLOOD COUNT 6.3 K/mm3 (4.0-10.0)
[2020-02-28 07:31] LABS: ALBUMIN 2.7 g/dl (3.4-5.0); BILIRUBIN,TOTAL 0.4 mg/dL (0.2-1); CREATININE 0.5 mg/dL (0.55-1.3); POTASSIUM 3.7 mmol/L (3.5-5.1); TOT PROT 5.3 g/dl (6.4-8.2)
[2020-02-28 07:48] LABS: BLOOD UREA NITROGEN 2.2 mg/dL (7-18)
[2020-02-28] MEDS: PANTOPRAZOLE SODIUM 40 MG VIAL IVPUSH SCH (09:34)
--- NOTE | 2020-02-28 13:16 | PN ---
Progress Note, Physician Chief Complaint: Seen and examined in bed. Pending EGD today. No further bleeding. Hgb stable. History of Present Illness: Pt is a 44 yo F with PMH of HTN being admitted due to acute lower GI bleed and incidental radiologic finding of uncomplicated appendicitis. No further bleeding noted - Current Medication List Current Medications: Active Medications Acetaminophen (Tylenol -) 650 mg PO Q4H PRN PRN Reason: MODERATE PAIN Dextrose/Sodium Chloride (D5-Ns -) 1,000 mls @ 125 mls/hr IV ASDIR [facility] Last Admin: 02/28/20 00:03 Dose: 125 mls/hr Documented by: Piperacillin Sod/Tazobactam (Sod 3.375 gm/ Dextrose) 50 mls @ 100 mls/hr IVPB Q6H-IV DENTON; Protocol Pantoprazole Sodium (Protonix Iv) 40 mg IVPUSH DAILY [facility] Last Admin: 02/28/20 09:34 Dose: 40 mg Documented by: - Objective Vital Signs: Vital Signs Temperature 97.9 F 02/28/20 06:16 Pulse Rate 71 02/28/20 06:16 Respiratory Rate 18 02/28/20 06:16 Blood Pressure 102/61 02/28/20 06:16 O2 Sat by Pulse Oximetry (%) 98 02/28/20 06:16 Labs: CBC, BMP 02/28/20 06:09 02/28/20 06:09 INR, PTT INR 1.03 (0.83-1.09) 02/26/20 13:24 Problem List - Problems (1) GI bleed Assessment/Plan: no further epsidoes overnight GI following plan for EGD today c/w IV protonix c/w IVF hydration - D5 NS @ 125 cc/hr c/w Monitor CBC Stool Culture; O&P pending NPO Code(s): K92.2 - GASTROINTESTINAL HEMORRHAGE, UNSPECIFIED Qualifiers: GI bleed type/associated pathology: unspecified gastrointestinal hemorrhage type Qualified Code(s): K92.2 - Gastrointestinal hemorrhage, unspecified (2) Prophylactic measure Code(s): Z29.9 - ENCOUNTER FOR PROPHYLACTIC MEASURES, UNSPECIFIED (3) Suspected COVID-19 virus infection Assessment/Plan: COVID neg Code(s): Z20.828 - CONTACT W AND EXPOSURE TO OTH VIRAL COMMUNICABLE DISEASES (4) Diverticulosis Assessment/Plan: Given CT findings, diverticular hemorrhage likely plan for EGD c/w zosyn until after procedure Code(s): K57.90 - DVRTCLOS OF INTEST, PART UNSP, W/O PERF OR ABSCESS W/O BLEED (5) Appendicitis Assessment/Plan: seen by Dr Hunter doesn't appear to have acute appendicitis No need for acute surgical intervention at this time. Code(s): K37 - UNSPECIFIED APPENDICITIS Qualifiers: Appendicitis type: acute appendicitis Acute appendicitis type: unspecified acute appendicitis type Qualified Code(s): K35.80 - Unspecified acute appendicitis Visit type - Emergency Visit Emergency Visit: Yes ED Registration Date: 02/26/20 Care time: The patient presented to the Emergency Department on the above date and was hospitalized for further evaluation of their emergent condition. - New Patient This patient is new to me today: No - Critical Care Critical Care patient: No - Discharge Referral Referred to [facility] Med P.C.: No
--- NOTE | 2020-02-28 18:08 | PN ---
Progress Note (short form) - Note Progress Note: Brief GI procedure note Colonoscopy findings left sided diverticulosis hemorrhoids no fresh blood or melena noted on exam Plan - diet advanced -h/h qd - tentative npo midnight for egd see full report
[2020-02-28] MEDS: PIPERACILLIN/TAZOB 3.375 GM 3.375 GM in DEXTROSE 5%-WATER - 50 ML IVPB SCH ×2 (18:31→19:28)
--- NOTE | 2020-02-29 07:18 | PN ---
Progress Note, Physician History of Present Illness: Pt is a 44 yo F with PMH of HTN being admitted due to acute lower GI bleed and incidental radiologic finding of uncomplicated appendicitis. No further bleeding noted - Current Medication List Current Medications: Active Medications Acetaminophen (Tylenol -) 650 mg PO Q4H PRN PRN Reason: MODERATE PAIN Dextrose/Sodium Chloride (D5-Ns -) 1,000 mls @ 125 mls/hr IV ASDIR [facility] Last Admin: 02/28/20 00:03 Dose: 125 mls/hr Documented by: Pantoprazole Sodium (Protonix Iv) 40 mg IVPUSH DAILY [facility] Last Admin: 02/28/20 09:34 Dose: 40 mg Documented by: - Objective Vital Signs: Vital Signs Temperature 98.2 F 02/29/20 05:47 Pulse Rate 81 02/29/20 05:47 Respiratory Rate 20 02/29/20 05:47 Blood Pressure 106/61 02/29/20 05:47 O2 Sat by Pulse Oximetry (%) 100 02/29/20 05:47 Labs: CBC, BMP 02/28/20 06:09 02/28/20 06:09 INR, PTT INR 1.03 (0.83-1.09) 02/26/20 13:24 Problem List - Problems (1) GI bleed Code(s): K92.2 - GASTROINTESTINAL HEMORRHAGE, UNSPECIFIED Qualifiers: GI bleed type/associated pathology: unspecified gastrointestinal hemorrhage type Qualified Code(s): K92.2 - Gastrointestinal hemorrhage, unspecified (2) Prophylactic measure Code(s): Z29.9 - ENCOUNTER FOR PROPHYLACTIC MEASURES, UNSPECIFIED (3) Suspected COVID-19 virus infection Code(s): Z20.828 - CONTACT W AND EXPOSURE TO OTH VIRAL COMMUNICABLE DISEASES (4) Diverticulosis Code(s): K57.90 - DVRTCLOS OF INTEST, PART UNSP, W/O PERF OR ABSCESS W/O BLEED (5) Appendicitis Code(s): K37 - UNSPECIFIED APPENDICITIS Qualifiers: Appendicitis type: acute appendicitis Acute appendicitis type: unspecified acute appendicitis type Qualified Code(s): K35.80 - Unspecified acute appendicitis
[2020-02-29 08:15] LABS: BASO % 0.5 % (0-2.0); EOS % 4.5 % (0-4.5); HEMATOCRIT 26.1 % (32.4-45.2); HEMOGLOBIN 8.8 GM/dL (10.7-15.3); LYMPH % 34.2 % (8-40); MCH 28.7 pg (25.7-33.7); MCHC 33.6 g/dl (32.0-36.0); MEAN CELL VOLUME 85.2 fl (80-96); MEAN PLT VOLUME 8.3 fl (7.5-11.1); MONO % 7.2 % (3.8-10.2); NEUT % 53.6 % (42.8-82.8); PLATELET COUNT 250 K/MM3 (134-434); RBC 3.06 M/mm3 (3.60-5.2); RDW 13.6 % (11.6-15.6); WHITE BLOOD COUNT 5.5 K/mm3 (4.0-10.0)
[2020-02-29 08:26] LABS: ALBUMIN 2.5 g/dl (3.4-5.0); BILIRUBIN,TOTAL 0.4 mg/dL (0.2-1); CALCIUM 7.9 mg/dL (8.5-10.1); CREATININE 0.6 mg/dL (0.55-1.3); POTASSIUM 3.8 mmol/L (3.5-5.1); TOT PROT 5.1 g/dl (6.4-8.2)
[2020-02-29 08:35] LABS: BLOOD UREA NITROGEN 2.3 mg/dL (7-18)
[2020-02-29] MEDS: PANTOPRAZOLE SODIUM 40 MG VIAL IVPUSH SCH (09:04)
[2020-02-29] MEDS: DEXTROSE 5%-NORMAL SALINE 1,000 ML IV SCH (09:47)
[2020-02-29 11:24] VITALS: BMI 25.7
--- NOTE | 2020-02-29 13:10 | PN ---
Progress Note (short form) - Note Progress Note: EGD complete. Report left in the procedural section of the physical chart and will be scanned into [employer]. Problem List - Problems (1) GI bleed Code(s): K92.2 - GASTROINTESTINAL HEMORRHAGE, UNSPECIFIED Qualifiers: GI bleed type/associated pathology: unspecified gastrointestinal hemorrhage type Qualified Code(s): K92.2 - Gastrointestinal hemorrhage, unspecified
[2020-02-29] MEDS ORDERED: FERROUS SO4 325 MG TABLET (FP) PO SCH (13:15)
[2020-02-29 13:57] VITALS: BP 124/60; PULSE 74; TEMP 98.4
--- NOTE | 2020-02-29 14:47 | DS ---
Physical Exam: SUBJECTIVE: Patient seen and examined 44 yo F with PMH of HTN being admitted due to acute lower GI bleed and incidental radiologic finding of uncomplicated appendicitis. No further bleeding noted OBJECTIVE: Vital Signs Period Temp Pulse Resp BP Sys/Mortensen Pulse Ox Last 24 Hr 97.3 F-98.8 F 65-88 16-20 94-124/48-72 98-100 PHYSICAL EXAM Constitutional: Yes: Well Nourished, No Distress, Calm Eyes: Yes: WNL, Conjunctiva Clear HENT: Yes: WNL, Atraumatic, Normocephalic Neck: Yes: WNL, Supple, Trachea Midline Cardiovascular: Yes: WNL, Regular Rate and Rhythm Respiratory: Yes: WNL, Regular, CTA Bilaterally Gastrointestinal: Yes: Normal Bowel Sounds, Soft, Abdomen, Obese ...Rectal Exam: Yes: Deferred Genitourinary: Yes: WNL Breast(s): Yes: WNL Musculoskeletal: Yes: WNL Extremities: Yes: WNL Edema: No Peripheral Pulses WNL: Yes Peripheral Pulses: Left Radial: 2+, Right Radial: 2+, Left Doralis Pedis: 2+, Right Dorsalis Pedis: 2+, Left Femoral: 2+, Right Femoral: 2+ Integumentary: Yes: WNL Neurological: Yes: WNL, Alert, Oriented ...Motor Strength: WNL Psychiatric: Yes: WNL LABS Laboratory Results - last 24 hr 02/29/20 02/29/20 06:45 06:45 WBC 5.5 RBC 3.06 L Hgb 8.8 L Hct 26.1 L MCV 85.2 MCH 28.7 MCHC 33.6 RDW 13.6 Plt Count 250 MPV 8.3 Absolute Neuts (auto) 2.9 Neutrophils % 53.6 Lymphocytes % 34.2 D Monocytes % 7.2 Eosinophils % 4.5 Basophils % 0.5 Nucleated RBC % 0 Sodium 143 Potassium 3.8 Chloride 113 H Carbon Dioxide 22 Anion Gap 8 BUN 2.3 L* Creatinine 0.6 Est GFR (CKD-EPI)AfAm 130.30 Est GFR (CKD-EPI)NonAf 112.42 Random Glucose 110 H Calcium 7.9 L Magnesium 2.0 Total Bilirubin 0.4 AST 8 L ALT 15 Alkaline Phosphatase 33 L Total Protein 5.1 L Albumin 2.5 L HOSPITAL COURSE: Date of Admission:02/26/20 Date of Discharge: 02/29/20 Problem List - Problems (1) GI bleed Assessment/Plan: no further episodes Colonoscopy done Findings: left sided diverticulosis hemorrhoids no fresh blood or melena noted on exam EGD with no bleeding or ulcers c/w protonix Code(s): K92.2 - GASTROINTESTINAL HEMORRHAGE, UNSPECIFIED Qualifiers: GI bleed type/associated pathology: unspecified gastrointestinal hemorrhage type Qualified Code(s): K92.2 - Gastrointestinal hemorrhage, unspecified (2) Suspected COVID-19 virus infection Assessment/Plan: COVID neg Code(s): Z20.828 - CONTACT W AND EXPOSURE TO OTH VIRAL COMMUNICABLE DISEASES (3) Diverticulosis Assessment/Plan: Given CT findings, diverticular hemorrhage likely egd/COLONSCOPY WITHOUT FINDINGS Code(s): K57.90 - DVRTCLOS OF INTEST, PART UNSP, W/O PERF OR ABSCESS W/O BLEED (5) Appendicitis Assessment/Plan: seen by Dr Hunter doesn't appear to have acute appendicitis No need for acute surgical intervention at this time. Code(s): K37 - UNSPECIFIED APPENDICITIS Qualifiers: Appendicitis type: acute appendicitis Acute appendicitis type: unspecified acute appendicitis type Qualified Code(s): K35.80 - Unspecified acute appendicitis Medically stable for discharge to home Minutes to complete discharge: 35 Discharge Summary Problems reviewed: Yes Reason For Visit: GASTROINTESTINAL HEMORRHAGE DIVERTICULAR DISEASE Current Active Problems Appendicitis (Acute) Diverticulosis (Acute) GI bleed (Acute) Prophylactic measure (Acute) Suspected COVID-19 virus infection (Acute) Condition: Improved - Instructions Diet, Activity, Other Instructions: DISCHARGE YOUR VISIT You came to the hospital because had a lower GI bleed. You underwent a Colonoscopy that revealed left sided diverticulosis and hemorrhoids. An upper endoscopy was also done that showed no bleeding in the stomach. You can resume your normal diet. AVOID and medication that can cause bleeding-motrin, eleve, ibuprofen, aspirin, and NSAIDs. If any bleeding reoccurs can your priary provider ir come back to the emergency room. MEDICATIONS Please continue to take your home medications as prescribed. There was no changes DIET Continue your home diet ADDITIONAL CARE Please make an appointment to see your primary care provider, 2 week from today. ADDITIONAL INFORMATION Please call 911 or come directly to the emergency department if you experience unusual headache, vision change, shortness of breath, chest pain, numbness, tingling, loss of alertness/awareness, loss of function, unusual bleeding or any alarming symptoms. Thank you for allowing me to care for you. Tawanda Stearns, [facility], [facility] [phone] Referrals: Zechariah Dexter MD [Primary Care Provider] - Almas Gasca DO [Staff Physician] - Disposition: HOME - Home Medications Comprehensive Discharge Medication List: Ambulatory Orders Nebivolol [Bystolic -] 5 mg PO DAILY 02/26/20 Problem List - Problems (1) GI bleed Code(s): K92.2 - GASTROINTESTINAL HEMORRHAGE, UNSPECIFIED Qualifiers: GI bleed type/associated pathology: unspecified gastrointestinal hemorrhage type Qualified Code(s): K92.2 - Gastrointestinal hemorrhage, unspecified (2) Prophylactic measure Code(s): Z29.9 - ENCOUNTER FOR PROPHYLACTIC MEASURES, UNSPECIFIED (3) Suspected COVID-19 virus infection Code(s): Z20.828 - CONTACT W AND EXPOSURE TO OTH VIRAL COMMUNICABLE DISEASES (4) Diverticulosis Code(s): K57.90 - DVRTCLOS OF INTEST, PART UNSP, W/O PERF OR ABSCESS W/O BLEED (5) Appendicitis Code(s): K37 - UNSPECIFIED APPENDICITIS Qualifiers: Appendicitis type: acute appendicitis Acute appendicitis type: unspecified acute appendicitis type Qualified Code(s): K35.80 - Unspecified acute appendicitis This patient is new to me today: No Emergency Visit: Yes ED Registration Date: 02/26/20 Care time: The patient presented to the Emergency Department on the above date and was hospitalized for further evaluation of their emergent condition. Critical Care patient: No - Discharge Referral Referred to [facility] Med P.C.: No
[2020-03-01] MEDS ORDERED: ASCORBIC ACID 500 MG TABLET (FP) PO SCH (10:00)
[2020-03-01] MEDS ORDERED: PANTOPRAZOLE 40 MG TABLET PO SCH (10:00)
== END 2020-02-29 16:29 | disposition home or self-care (01) | DRG 244 ==
LOC: JER 12:40 → JERBED 19:00 → J4S 20:24
PROVIDERS: ADMIT Internal Medicine; ATTEND Nurse Practitioner Acute Care
PROC: 0DJD8ZZ Inspection of Lower Intestinal Tract, Via Natural or Artificial Opening Endoscopic (ICD-10-PCS; 2020-02-28)
PROC: 0DJ08ZZ Inspection of Upper Intestinal Tract, Via Natural or Artificial Opening Endoscopic (ICD-10-PCS; principal; 2020-02-29 13:00)
DX: K57.91 Diverticulosis of intestine, part unspecified, without perforation or abscess with bleeding (principal); K37 Unspecified appendicitis; I10 Essential (primary) hypertension; K64.0 First degree hemorrhoids
CPT/HCPCS: 36415; 71045-TC-FY; 74177-TC; 80053; 81003; 82272; 82550; 83605; 83690; 83735; 84100; 84484; 84703; 85025; 85027; 85610; 85730; 86850; 86900; 86901; 87045; 87046; 87086; 87177; 87209; 93005; 93010; 99285-25; Q9967; U0003

== ENCOUNTER 2022-03-23 06:15 | Day surgery (SDC) | payer OTHER ==
[2022-03-13 11:19] VITALS: BMI 24.7
[2022-03-23] MEDS ORDERED: BUPIVACAINE HCL 100 ML ONE (07:20)
[2022-03-23] MEDS ORDERED: PROPOFOL 60 ML ONE (07:22)
[2022-03-23] MEDS ORDERED: SUCCINYLCHOLINE CHLORIDE 200 MG/10 ML SYRINGE ONE (07:22)
[2022-03-23] MEDS ORDERED: MIDAZOLAM HCL 2 MG/2 ML SINGLE DOSE VIAL ONE (07:22)
[2022-03-23] MEDS ORDERED: SEVOFLURANE 250 ML BTL ONE (07:26)
[2022-03-23] MEDS ORDERED: ONDANSETRON 4 MG/2 ML VIAL ONE (07:44)
[2022-03-23] MEDS ORDERED: ceFAZolin SODIUM 1 GM VIAL ONE (07:44)
[2022-03-23] MEDS ORDERED: DEXAMETHASONE SOD PHOSPHATE 4 MG/1 ML VIAL ONE (07:44)
[2022-03-23] MEDS ORDERED: KETOROLAC TROMETHAMINE 30 MG/1 ML VIAL ONE (07:44)
[2022-03-23] MEDS ORDERED: oxyCODONE HCL 5 MG TABLET PO PRN (08:21)
[2022-03-23] MEDS ORDERED: ONDANSETRON 4 MG/2 ML VIAL IVPUSH PRN (08:21)
[2022-03-23] MEDS ORDERED: ACETAMINOPHEN 500 MG TABLET (FP) ONE (09:07)
[2022-03-23 09:21] VITALS: RESP 16; TEMP 97.6
[2022-03-23] MEDS ORDERED: traMADol HCL 50 MG TABLET ONE (09:35)
[2022-03-23 12:04] VITALS: BP 132/76; PULSE 66
[2022-03-23] MEDS ORDERED: ACETAMINOPHEN 500 MG TABLET (FP) PO ONE (12:25)
[2022-03-23] MEDS ORDERED: traMADol HCL 50 MG TABLET PO ONE (12:25)
== END 2022-03-23 11:15 | disposition home or self-care (01) ==
LOC: FASU 06:15
PROVIDERS: ATTEND Orthopaedic Surgery Sports Medicine
PROC: 0SBD4ZZ Excision of Left Knee Joint, Percutaneous Endoscopic Approach (ICD-10-PCS; 2022-03-23)
PROC: 0SBD4ZZ Excision of Left Knee Joint, Percutaneous Endoscopic Approach (ICD-10-PCS; principal; 2022-03-23 07:55)
DX: S83.242A Other tear of medial meniscus, current injury, left knee, initial encounter (principal); M22.42 Chondromalacia patellae, left knee; M65.162 Other infective (teno)synovitis, left knee; X58.XXXA Exposure to other specified factors, initial encounter; Y93.9 Activity, unspecified; Y92.9 Unspecified place or not applicable
CPT/HCPCS: 81025; 94760; 97116-GP

== ENCOUNTER 2022-10-16 08:36 | Day surgery (SDC) | payer OTHER ==
[2022-10-07 12:40] VITALS: BMI 25.7
[2022-10-16] MEDS ORDERED: MIDAZOLAM HCL 2 MG/2 ML SINGLE DOSE VIAL ONE (11:29)
[2022-10-16] MEDS ORDERED: BUPIVACAINE HCL/PF 0.5% (5MG/ML) 10 ML VIAL ONE (11:29)
[2022-10-16] MEDS ORDERED: BUPIVACAINE HCL/PF 0.5% (5 MG/ML) 30 ML VIAL IJ ONE (11:29)
[2022-10-16] MEDS ORDERED: DEXAMETHASONE SOD PHOSPHATE/PF 10 MG/ML SDV ONE (11:33)
[2022-10-16] MEDS ORDERED: ONDANSETRON 4 MG/2 ML VIAL ONE (11:59)
[2022-10-16] MEDS ORDERED: DEXAMETHASONE SOD PHOSPHATE 4 MG/1 ML VIAL ONE (11:59)
[2022-10-16] MEDS ORDERED: ceFAZolin SODIUM 1 GM VIAL ONE (11:59)
[2022-10-16] MEDS ORDERED: ONDANSETRON 4 MG/2 ML VIAL IVPUSH PRN (13:56)
[2022-10-16] MEDS ORDERED: oxyCODONE HCL 5 MG TABLET PO PRN (13:56)
[2022-10-16] MEDS ORDERED: LACTATED RINGERS SOLUTION 1,000 ML IV SCH (14:00)
[2022-10-17 07:09] VITALS: BP 120/71; PULSE 69; RESP 18; TEMP 98.7
== END 2022-10-17 16:09 | disposition home or self-care (01) ==
LOC: FASU 08:36 → FM/S 10-17 09:13 → FASU 10-17 16:09
PROVIDERS: ATTEND Orthopaedic Surgery Sports Medicine
PROC: 0SBC4ZZ Excision of Right Knee Joint, Percutaneous Endoscopic Approach (ICD-10-PCS; principal; 2022-10-16 12:17)
DX: S83.241A Other tear of medial meniscus, current injury, right knee, initial encounter (principal); X58.XXXA Exposure to other specified factors, initial encounter; Y93.9 Activity, unspecified; Y92.9 Unspecified place or not applicable
CPT/HCPCS: 84703; 94760; 97116-GP; 97162-GP